=== PATIENT | female | born 1950 | race Caucasian/White ===

== ENCOUNTER → 2017-01-29 | Outpatient (REF) | payer OTHER ==
[2017-01-29 17:39] LABS: BASO % 0.6 % (0.0-1.0); EOS # 0.2 K/mm3 (0.0-0.50); EOS % 2.7 % (0.0-3.0); LARGE UNSTAINED CELL # 0.1 K/mm3 (0.0-0.4); LARGE UNSTAINED CELL % 1.4 % (0.0-4.0); LYMPH # 2.7 K/mm3 (1.5-4.5); LYMPH % 32.5 % (24.0-44.0); MEAN CORPUSCULAR HEMOGLOBIN 30.4 pg (27.0-33.0); MONO # 0.3 K/mm3 (0.0-0.8); MONO % 4.1 % (0.0-5.0); NEUTROPHILS # 4.9 K/mm3 (1.8-7.7); NEUTROPHILS % 58.6 % (36.0-66.0); PLATELET COUNT, AUTOMATED 326 k/mm3 (150-450); RED CELL DISTRIBUTION WIDTH 13.1 % (11.5-14.5); WHITE BLOOD COUNT 8.4 K/mm3 (4.0-10.0)
[2017-01-29 18:07] LABS: ALBUMIN 3.8 GM/DL (3.2-5.2); ALBUMIN/GLOBULIN RATIO 1.12 (1.00-1.93); ALKALINE PHOSPHATASE 112 U/L (45-117); ALT/SGPT 32 U/L (12-78); ANION GAP 8 MEQ/L (8-16); AST/SGOT 20 U/L (15-37); BILIRUBIN,TOTAL 0.8 MG/DL (0.2-1.0); BLOOD UREA NITROGEN 15 MG/DL (7-18); CALCIUM LEVEL 8.7 MG/DL (8.8-10.2); CARBON DIOXIDE LEVEL 29 MEQ/L (21-32); CHLORIDE LEVEL 102 MEQ/L (98-107); CREATININE FOR GFR 0.78 MG/DL (0.55-1.02); FREE T4 1.02 NG/DL (0.76-1.46); GLOMERULAR FILTRATION RATE > 60.0 (>45); GLUCOSE, FASTING 127 MG/DL (80-110); SODIUM LEVEL 139 MEQ/L (136-145); TOTAL PROTEIN 7.2 GM/DL (6.4-8.2)
[2017-01-29 18:50] LABS: ERYTHROCYTE SEDIMENTATION RATE 33 mm/hr (0-30)
== END ==
LOC: M SFHCCLAY 11:23
PROVIDERS: ATTEND Physician Assistant
DX: A69.20 Lyme disease, unspecified (principal)

== ENCOUNTER → 2017-04-14 | Outpatient (REF) | payer OTHER ==
[~2017-04-14] MED LIST: ADVI200T PO; AMBI5TAB PO; ASPI1TAB PO; ATOR40TA75 PO; CIPR500T3 PO; MULT1TAB10 PO; TYLE650T35 PO; ZOLO100T PO
[2017-04-14 12:43] LABS: MEAN CORPUSCULAR HEMOGLOBIN 30.3 pg (27.0-33.0); MEAN CORPUSCULAR HGB CONC 32.6 g/dl (32.0-36.5); MEAN CORPUSCULAR VOLUME 92.9 fl (80.0-96.0); RED CELL DISTRIBUTION WIDTH 13.3 % (11.5-14.5); WHITE BLOOD COUNT 8.8 K/mm3 (4.0-10.0)
[2017-04-17 00:06] LABS: Lyme Disease IgG Ab 18 kDa Ban Absent (.); Lyme Disease IgG Ab 23 kDa Ban Absent (.); Lyme Disease IgG Ab 28 kDa Ban Absent (.); Lyme Disease IgG Ab 30 kDa Ban Absent (.); Lyme Disease IgG Ab 39 kDa Ban Absent (.); Lyme Disease IgG Ab 41 kDa Ban Absent (.); Lyme Disease IgG Ab 45 kDa Ban Absent (.); Lyme Disease IgG Ab 58 kDa Ban Absent (.); Lyme Disease IgG Ab 66 kDa Ban Absent (.); Lyme Disease IgG Ab 93 kDa Ban Absent (.); Lyme Disease IgG West Blot Int Negative (.); Lyme Disease IgG/IgM Antibodie <0.91 ISR (0.00-0.90); Lyme Disease IgM Ab 23 kDa Ban Present (.); Lyme Disease IgM Ab 39 kDa Ban Absent (.); Lyme Disease IgM Ab 41 kDa Ban Absent (.); Lyme Disease IgM Ab Quantitati 2.22 index (0.00-0.79); Lyme Disease IgM West Blot Int Negative (.)
== END ==
LOC: M SFHCPLAZ 09:17 → M SFHCCLAY 09:22
PROVIDERS: ATTEND Internal Medicine Infectious Disease
DX: A69.20 Lyme disease, unspecified (principal)

== ENCOUNTER → 2017-05-25 | Outpatient (REF) | payer OTHER | LOC: M SFHCCAPE 15:47 | PROVIDERS: ATTEND Physician Assistant | DX: R10.31 Right lower quadrant pain (principal) ==

== ENCOUNTER → 2017-06-04 | Outpatient (CLI) | payer OTHER ==
[~2017-06-04] MED LIST changes: +GASTROGRAFIN SOLUTION 30ML (Q9963) As Ordered ONE; +ISOVUE-370 76% 100ML VIAL (Q9967) As Ordered ONE
--- NOTE | 2017-06-05 14:32 | REP ---
Clinical: Right lower quadrant pain. Findings: Lung bases demonstrate chronic granulomatous changes. Visualized heart and pericardium are normal. The right kidney includes a 3.3 cm enhancing mass lesion along the medial aspect of the kidney consistent with renal cell carcinoma until proven otherwise. No perinephric stranding or obvious significant adenopathy appreciated. The right renal vasculature appears normal and without obvious thrombosis. Liver, spleen, pancreas, gallbladder, bilateral adrenal glands and left kidney appear relatively normal. The enteric system is without obstruction or acute inflammatory process. Scattered diverticula noted without acute diverticulitis. Pelvis demonstrates partially calcified uterine fibroids. The bladder is partially collapsed and grossly normal. No pelvic fluid. Sigmoid diverticulosis noted without acute diverticulitis. Normal terminal ileum and appendix identified in the right lower quadrant. Atherosclerotic changes of the aorta and branch vessels noted without aneurysm. No ascites. No free air. No mass lesion. No adenopathy. Musculoskeletal structures demonstrate age-related changes. Impression: 1. 3.3 cm enhancing right renal mass consistent with renal cell carcinoma until proven otherwise. No associated perinephric stranding, significant adenopathy, or vascular abnormality noted. No ascites. No obvious metastatic disease. 2. Colonic diverticulosis. 3. Calcified uterine fibroids. Signed by Juan Bravo MD 06/04/2017 11:34 P
== END ==
LOC: M RAD 14:08
PROVIDERS: ATTEND Physician Assistant
DX: R10.31 Right lower quadrant pain (principal); N28.89 Other specified disorders of kidney and ureter; K57.30 Diverticulosis of large intestine without perforation or abscess without bleeding; D25.0 Submucous leiomyoma of uterus
CPT/HCPCS: 74178; Q9963; Q9967

== ENCOUNTER → 2017-06-11 | Outpatient (REF) | payer OTHER ==
[~2017-06-11] MED LIST changes: -GASTROGRAFIN SOLUTION 30ML (Q9963) As Ordered ONE; -ISOVUE-370 76% 100ML VIAL (Q9967) As Ordered ONE
== END ==
LOC: M SMT 13:02
PROVIDERS: ATTEND Nurse Practitioner Women's Health
DX: Z01.812 Encounter for preprocedural laboratory examination (principal); N28.89 Other specified disorders of kidney and ureter

== ENCOUNTER → 2017-06-22 | Outpatient (REF) | payer OTHER ==
[2017-06-22 11:35] LABS: MEAN CORPUSCULAR HEMOGLOBIN 30.2 pg (27.0-33.0); MEAN CORPUSCULAR HGB CONC 32.9 g/dl (32.0-36.5); MEAN CORPUSCULAR VOLUME 91.8 fl (80.0-96.0); RED CELL DISTRIBUTION WIDTH 13.4 % (11.5-14.5); WHITE BLOOD COUNT 9.8 K/mm3 (4.0-10.0)
[2017-06-22 11:42] LABS: INR 0.88
[2017-06-22 11:43] LABS: ANION GAP 4 MEQ/L (8-16); BLOOD UREA NITROGEN 13 MG/DL (7-18); CALCIUM LEVEL 8.9 MG/DL (8.8-10.2); CARBON DIOXIDE LEVEL 31 MEQ/L (21-32); CHLORIDE LEVEL 105 MEQ/L (98-107); CREATININE FOR GFR 0.71 MG/DL (0.55-1.02); GLOMERULAR FILTRATION RATE > 60.0 (>45); GLUCOSE, FASTING 113 MG/DL (80-110); POTASSIUM SERUM 4.6 MEQ/L (3.5-5.1); SODIUM LEVEL 140 MEQ/L (136-145)
== END ==
LOC: M LABSMT 08:57
PROVIDERS: ATTEND Nurse Practitioner Women's Health
DX: Z01.812 Encounter for preprocedural laboratory examination (principal); N28.89 Other specified disorders of kidney and ureter

== ENCOUNTER → 2017-06-22 | Outpatient (CLI) | payer OTHER ==
--- NOTE | 2017-06-22 10:31 | REP ---
PA and lateral chest: There are no comparisons. There is a 3.7 mm right lung nodule. In the absence of comparison studies to document stability, CT might be considered for followup, particularly in view of the patient's clinical history. The lung lund otherwise clear. Cardiac size is normal. The everett and mediastinum are unremarkable. There is thoracic scoliosis convex right lumbar scoliosis convex left. There is multilevel degenerative disc disease throughout the spine. Impression: 2.7 cm right lung nodule. Consider follow-up CT. Otherwise, negative study of the chest. No acute cardiopulmonary findings
== END ==
LOC: M CLY 09:08 → M SFHCCLAY 09:12 → M CLY 09:13 → M SFHCCLAY 09:13
PROVIDERS: ATTEND Nurse Practitioner Women's Health
DX: Z01.812 Encounter for preprocedural laboratory examination (principal); N28.89 Other specified disorders of kidney and ureter; R91.1 Solitary pulmonary nodule

== ENCOUNTER → 2017-06-23 | Outpatient (CLI) | payer OTHER ==
[~2017-06-23] MED LIST changes: +ISOVUE-370 76% 100ML VIAL (Q9967) As Ordered ONE
--- NOTE | 2017-06-23 14:50 | REP ---
CT of the chest with IV contrast: Comparison is the PA and lateral chest dated 06/22/2017. There is a calcified nodule in the right middle lobe corresponding to the nodule on the comparison plain film study. This is compatible with calcified granuloma. By CT. This nodule measures 6 mm maximally. There is a 7 mm calcified granuloma in the right lower lobe. Just above this there is a 3 mm calcified granuloma in the right lower lobe. There are no other lung nodules or masses. There are no acute infiltrates or effusions. There is no mediastinal or hilar adenopathy. No axillary adenopathy. The thoracic aorta is unremarkable. Cardiac size is normal. There is no pericardial effusion. The visualized upper abdominal contents are unremarkable except for splenic calcified granulomas. There is no adrenal mass. There are calcified granulomas as described. The small nodule identified on the comparison study corresponds to one of these calcified granulomas. Otherwise, negative CT study of the chest. Signed by Don Goff MD 06/23/2017 02:41 P
== END ==
LOC: M RAD 13:47
PROVIDERS: ATTEND Nurse Practitioner Women's Health
DX: R91.1 Solitary pulmonary nodule (principal); J98.4 Other disorders of lung
CPT/HCPCS: 71260; Q9967

== ENCOUNTER 2017-07-07 10:00 | Inpatient (IN) | payer MEDICARE, OTHER ==
[~2017-07-07] VITALS: Ht 170.2 cm; Wt 112.5 kg
[~2017-07-07 10:00] MED LIST changes: -CIPR500T3 PO; -ISOVUE-370 76% 100ML VIAL (Q9967) As Ordered ONE; -TYLE650T35 PO
--- NOTE | 2017-07-27 11:46 | HPE ---
DATE OF ADMISSION: 07/28/2017 HISTORY OF PRESENT ILLNESS: Jo-Ann is a 66-year-old female patient here for evaluation of the right renal mass seen on CAT scan of abdomen and pelvis. CAT scan shows an enhancing 3.3 cm renal mass consistent with renal cell carcinoma. CAT scan was done for right lower quadrant pain. She was treated for urinary tract infection at that time with Cipro. She had finished her antibiotics and pain has subsided. She currently has no father some lower urinary tract symptoms, pain or hematuria. CURRENT MEDICATIONS: - multivitamin - Biotin - vitamin D - vitamin B12 - Zocor - sertraline - atorvastatin - calcium - low-dose baby aspirin. PAST MEDICAL HISTORY: Hyperlipidemia, depression, anxiety, Lyme disease. PAST SURGICAL HISTORY: section times two, bladder sling 2015. SOCIAL HISTORY: She is a current smoker of six to ten cigarettes per day. ALLERGIES: No known drug allergies. REVIEW OF SYSTEMS: We have reviewed the 14 review of systems and there is no other symptomatology other than the history of present illness. Vital signs were stable. Weight is 196 pounds, height 5 feet 7 inches. PHYSICAL EXAMINATION GENERAL APPEARANCE: Alert, oriented, no apparent distress. HEART: Strong, regular. No murmur. ABDOMEN : No CVA tenderness. Soft, nontender, no mass. LUNGS: Clear to auscultate bilaterally. Respirations easy. EXTREMITIES: No edema, clubbing or cyanosis. ASSESSMENT: Right renal mass. Dr. Valverde has reviewed with the patient that she will need of robotic-assisted right radical nephrectomy. Procedure was included to review of risk of infection, bleeding, damage to organs. Consent was signed, and she has had a full medical clearance and will proceed with surgery.
[2017-07-28] MEDS ORDERED: LR 1,000 ML IV SCH ×2 (10:00→17:15)
[2017-07-28] MEDS: oxyCODONE 5MG TAB PO PRN (17:10)
[2017-07-28] MEDS ORDERED: fentaNYL 100 MCG/2 ML INJECTION (J3010) IV PRN (17:15)
[2017-07-28] MEDS ORDERED: MEPERIDINE INJ 25 MG/ML VIAL (J2175) IV PRN (17:15)
[2017-07-28] MEDS ORDERED: METOCLOPRAMIDE INJ 10MG/2ML VIAL (J2765) IV PRN (17:15)
[2017-07-28] MEDS ORDERED: ONDANSETRON 4MG/2ML VIAL (J2405) IV PRN ×2 (17:15)
[2017-07-28 17:43] LABS: MEAN CORPUSCULAR HEMOGLOBIN 29.7 pg (27.0-33.0); MEAN CORPUSCULAR HGB CONC 32.3 g/dl (32.0-36.5); MEAN CORPUSCULAR VOLUME 91.7 fl (80.0-96.0); PLATELET COUNT, AUTOMATED 284 10^3/uL (150-450); RED CELL DISTRIBUTION WIDTH 13.7 % (11.5-14.5)
[2017-07-28] MEDS ORDERED: PERCOCET 5MG/325MG TAB PO PRN ×2 (18:15→20:30)
[2017-07-28 18:16] LABS: CALCIUM LEVEL 8.5 MG/DL (8.8-10.2); CREATININE FOR GFR 1.29 MG/DL (0.55-1.02); GLOMERULAR FILTRATION RATE 44.2 (>45)
[2017-07-28 18:25] VITALS: BP 140/63
[2017-07-28 18:55] VITALS: BP 130/60
[2017-07-28 19:25] VITALS: BP 137/65
[2017-07-28] MEDS: PANTOPRAZOLE 40MG INJ (PROTONIX) (C9113) IV SCH (20:16)
[2017-07-28] MEDS: CIPROFLOXACIN 500 MG TAB PO SCH (20:16)
[2017-07-28] MEDS: KCL 20MEQ IN D5/0.45NS 1000ML 1,000 ML IV SCH (20:17)
[2017-07-28 20:25] VITALS: BP 134/64
[2017-07-28 21:25] VITALS: BP 131/61
[2017-07-28] MEDS: ACETAMINOPHEN 650MG ER TAB (TYLENOL ARTHRITIS) PO SCH (22:00)
[2017-07-28] MEDS: MORPHINE 4 MG/ML 1ML SYRINGE IV PRN (22:12)
[2017-07-28 23:00] VITALS: BP 131/64
[2017-07-29] VITALS: BP 136/63
[2017-07-29] MEDS: KCL 20MEQ IN D5/0.45NS 1000ML 1,000 ML IV SCH ×2 (03:15→14:15)
[2017-07-29] MEDS: MORPHINE 4 MG/ML 1ML SYRINGE IV PRN ×2 (03:45→10:18)
[2017-07-29 04:00] VITALS: BP 134/62
[2017-07-29 06:00] VITALS: BP 121/58
[2017-07-29] MEDS: CIPROFLOXACIN 500 MG TAB PO SCH ×2 (06:13→18:21)
[2017-07-29] MEDS: ACETAMINOPHEN 650MG ER TAB (TYLENOL ARTHRITIS) PO SCH ×3 (06:13→21:42)
[2017-07-29 06:27] LABS: MEAN CORPUSCULAR HEMOGLOBIN 29.5 pg (27.0-33.0); MEAN CORPUSCULAR HGB CONC 32.1 g/dl (32.0-36.5); PLATELET COUNT, AUTOMATED 272 10^3/uL (150-450); RED CELL DISTRIBUTION WIDTH 13.9 % (11.5-14.5); WHITE BLOOD COUNT 13.1 10^3/uL (4.0-10.0)
[2017-07-29 06:53] LABS: CALCIUM LEVEL 8.5 MG/DL (8.8-10.2); CREATININE FOR GFR 1.19 MG/DL (0.55-1.02); GLOMERULAR FILTRATION RATE 48.5 (>45); POTASSIUM SERUM 4.4 MEQ/L (3.5-5.1)
[2017-07-29] MEDS: oxyCODONE 5MG TAB PO PRN ×3 (08:39→18:22)
[2017-07-29 10:00] VITALS: BP 143/66
[2017-07-29 14:00] VITALS: BP 131/63
[2017-07-29 18:00] VITALS: BP 148/67
[2017-07-29] MEDS: PANTOPRAZOLE 40MG INJ (PROTONIX) (C9113) IV SCH (18:21)
[2017-07-29] MEDS ORDERED: zolPIDEM TARTRATE 5 MG TAB PO PRN (19:00)
[2017-07-30] MEDS: KCL 20MEQ IN D5/0.45NS 1000ML 1,000 ML IV SCH (00:49)
[2017-07-30 02:00] VITALS: BP 139/61
[2017-07-30] MEDS: oxyCODONE 5MG TAB PO PRN ×4 (02:04→18:26)
[2017-07-30] MEDS: CIPROFLOXACIN 500 MG TAB PO SCH ×2 (05:22→18:25)
[2017-07-30] MEDS: ACETAMINOPHEN 650MG ER TAB (TYLENOL ARTHRITIS) PO SCH ×3 (05:22→21:30)
[2017-07-30 06:00] VITALS: BP 144/64
[2017-07-30] MEDS ORDERED: PNEUMOCOCCAL VACCINE 0.5ML SYRINGE(90732) PNEUMOVAX 23 IM ONE (09:00)
[2017-07-30 10:00] VITALS: BP 136/70
[2017-07-30 14:00] VITALS: BP 138/80
--- NOTE | 2017-07-30 15:40 | RO ---
DATE OF PROCEDURE: 07/29/2017 PREPROCEDURE DIAGNOSIS: Right renal neoplasm. POSTPROCEDURE DIAGNOSIS: Right renal neoplasm. SURGERY PERFORMED: Robotic-assisted right radical nephrectomy. SURGEON: Yvon Valverde MD SENIOR WEB APPLICATIONS DEVELOPER: Marcela Martinez NP ANESTHESIA: General. ESTIMATED BLOOD LOSS (EBL): 25 mL. COMPLICATIONS: None. HISTORY OF PRESENT ILLNESS: 67-year-old male patient who has an incidentally detected right renal neoplasm, solid mass enhancing on CT scan. For this reason , she has consented for a right robotic-assisted radical nephrectomy. PROCEDURE DESCRIPTION: In a patient under general anesthesia with an orogastric tube draining the gastric contents and a Dorsey catheter #[id number] with a balloon inflated to 10 mL to drain the bladder, we positioned the patient in the decubitolateral position with the left side down and the right side up. We secured the patient to the table with a swan bag and straps. The table was flexed at the level of the waist. At that moment in time, we prepped the area of concern, which included the entire genitalia, abdomen and right flank. After this we started by doing an incision supraumbilically for about 4 cm above the umbilicus in the midclavicular line, transverse incision about 2 cm in length. Through this incision, we opened the peritoneal cavity. We placed a balloon trocar through this incision and inflated the balloon to 40 mL and then insufflated the abdomen with a maximum pressure of 20 at high flow. We then proceeded to actually place a 10 mm robotic hand-held assisted camera to inspect the abdomen. There were some adhesions in the right lower quadrant of the abdomen. For this reason, we placed a mid clavicular line, subcostal 8 mm metallic trocar under direct vision and then with Monopolar scissors we dissected the adhesions to place the lower four trocars. We placed an 8 mm metallic trocar in the two axillary lines 4 cm away from the anterior iliac crest for the third arm and between these two and the optic port in the mid clavicular line in the right lower quadrant another 8 mm metallic trocar. Between this one and the optic port in the midline, infraumbilically, we placed a 15 mm trust manager assistant port through which the Endo Catch could actually be accessed. We then proceeded to dock the robot and on the left arm we used Monopolar scissors and on the third arm ProGrasp and on the right arm bipolar PK. We also placed a 5 mm VersaStep trocar in the epigastrium 3 cm below the appendix xiphoid through the tract to pass an Allis clamp to retract the liver. We then proceeded to actually dissect the Line of Toldt of the ascending colon and retract the ascending colon toward the midline. We dissected the tissues around the vena cava up to the renal vein. We identified the renal vein and the renal artery. There were actually two arteries, one inferior and one superior. At that moment in time, we Hem-o-landry the inferior artery with two Hem-o-Loks and one proximal Hem-o-landry toward the kidney. We cut in the middle. We then dissected the renal vein and found another artery superiorly. At that moment in time, we dissected the upper pole and dissected the adrenal away from the upper pole of the right kidney. We then proceeded to actually dissected the gonadal vein and the ureter. At that moment in time, we Hem-o-landry the ureter times two and Hem-o-landry the gonadal vein times two and cut in the middle. We then dissected the lower pole and retracted the lower pole with the third arm. This placed into traction the hilum and then with an Endo SCOUT stapler, we secured the renal vein and the superior renal artery in one. We then proceeded to actually place another Endo SCOUT stapler for the upper pole attachments that were adrenal and then dissected with Monopolar scissors the attachments of the upper pole and the lateral pole of the kidney. We then placed the kidney into a 15 mm Endo Catch bag and then secured hemostasis with bipolar PK and monopolar scissors. We then extracted the instruments out one by one, verifying that there were no bleeding vessels, undocked the robot and took all the instruments out and the optic port out before that. We then undocked the robot, took all the trocars out and started to extend the incision in the midline around the umbilicus for about 7 cm in length. At that moment in time we extracted the specimen from the Endo Catch bag and sent it for permanent pathology analysis. We closed the incision in the midline with a Prolene #1 in separate stitches and then we closed the optic port incision also with Prolene #1 in separate stitches and a UR 6 needle and #0 Vicryl in separate stitches second layer. We then closed the skin incisions with #4-0 Monocryl subcuticular stitches. We placed Mastisol, Steri-Strips, Telfa in each incision site. Patient will pass to recovery with a Dorsey catheter and then to the floor. Once she is fully recovered and tolerating a regular diet and voiding very well, pain under control, she will be discharged home. There were no complications of surgery. Kidney and ureter were sent for permanent pathology analysis, right kidney and ureter. MELBA
[2017-07-30] MEDS: PANTOPRAZOLE 40MG INJ (PROTONIX) (C9113) IV SCH (18:25)
[2017-07-30 22:00] VITALS: BP 141/70
[2017-07-31] MEDS: CIPROFLOXACIN 500 MG TAB PO SCH (05:39)
[2017-07-31] MEDS: ACETAMINOPHEN 650MG ER TAB (TYLENOL ARTHRITIS) PO SCH ×2 (05:39→13:12)
[2017-07-31 06:00] VITALS: BP 125/57
[2017-07-31 06:07] LABS: MEAN CORPUSCULAR HEMOGLOBIN 29.7 pg (27.0-33.0); MEAN CORPUSCULAR HGB CONC 32.4 g/dl (32.0-36.5); MEAN CORPUSCULAR VOLUME 91.7 fl (80.0-96.0); PLATELET COUNT, AUTOMATED 228 10^3/uL (150-450); RED CELL DISTRIBUTION WIDTH 13.8 % (11.5-14.5); WHITE BLOOD COUNT 9.3 10^3/uL (4.0-10.0)
[2017-07-31 06:26] LABS: CALCIUM LEVEL 8.9 MG/DL (8.8-10.2); CREATININE FOR GFR 1.28 MG/DL (0.55-1.02); GLOMERULAR FILTRATION RATE 44.6 (>45); POTASSIUM SERUM 4.2 MEQ/L (3.5-5.1)
[2017-07-31] MEDS ORDERED: TYLE650T35 PO (12:56)
[2017-07-31] MEDS ORDERED: CIPR500T3 PO (12:56)
--- NOTE | 2017-08-03 17:01 | DSES ---
DATE OF ADMISSION: 07/28/2017 DATE OF DISCHARGE: 07/31/2017 ADMISSION DIAGNOSIS: Right renal neoplasm. DISCHARGE DIAGNOSIS: Right renal neoplasm. SURGERY PERFORMED: Robotic-assisted right radical nephrectomy. ADMITTING SURGEON: Yvon Valverde MD DISCHARGING SURGEON: Yvon Valverde MD COMPLICATIONS: None. HISTORY OF PRESENT ILLNESS: 67-year-old female patient who has an incidentally detected right renal neoplasm, solid mass enhancing on CT scan. For this reason, she has consented for a right robotic-assisted radical nephrectomy. This was carried out on 07/29/2017. After this procedure, she was admitted to the hospital. HOSPITALIZATION COURSE: The patient did very well. By postoperative day #1, she was tolerating clear liquids, we discontinued the Dosrey catheter and she voided. By postoperative day #2, she was tolerating a regular diet, passing gas, pain was controlled with by mouth pain medication. By 07/31/2017, she was actually tolerating a regular diet, drinking fluids, voiding spontaneously very well, pain was controlled with Tylenol only, and no fever, no chills, hemodynamically stable. She requested to go home and we agreed upon this. For this reason, she will go home with ciprofloxacin 500 mg by mouth one tablet by mouth twice a day for 10 days. She will have Tylenol 650 mg one tablet by mouth extended release every 8 hours as needed for pain. She will followup at [facility] in about 2 weeks. She may shower in 3 days. No heavy weightlifting above 20 pounds. No driving while on narcotics. Pathology has not come out yet. For this reason, we will followup pathology and when she follows up with us, we will discuss the pathology results. There were no complications during surgery or hospitalization.
== END 2017-07-31 13:43 | disposition home or self-care (01) | DRG 658 ==
LOC: M OR 07-28 09:50 → M MSPAV 07-28 18:16
PROVIDERS: ADMIT Urology; ATTEND Urology
PROC: 0TT04ZZ Resection of Right Kidney, Percutaneous Endoscopic Approach (ICD-10-PCS; principal; 2017-07-29)
PROC: 0TB64ZZ Excision of Right Ureter, Percutaneous Endoscopic Approach (ICD-10-PCS; 2017-07-29)
PROC: 8E0W4CZ Robotic Assisted Procedure of Trunk Region, Percutaneous Endoscopic Approach (ICD-10-PCS; 2017-07-29)
DX: C64.1 Malignant neoplasm of right kidney, except renal pelvis (principal); E78.5 Hyperlipidemia, unspecified; F32.9 Major depressive disorder, single episode, unspecified; F41.9 Anxiety disorder, unspecified; F17.210 Nicotine dependence, cigarettes, uncomplicated

== ENCOUNTER → 2017-09-04 | Outpatient (REF) | payer MEDICARE, OTHER ==
[~2017-09-04] MED LIST changes: +CIPR500T3 PO; +TYLE650T35 PO
[2017-09-04 18:21] LABS: MEAN CORPUSCULAR HEMOGLOBIN 30.1 pg (27.0-33.0); MEAN CORPUSCULAR HGB CONC 32.6 g/dl (32.0-36.5); MEAN CORPUSCULAR VOLUME 92.3 fl (80.0-96.0); PLATELET COUNT, AUTOMATED 270 10^3/uL (150-450); RED CELL DISTRIBUTION WIDTH 14.2 % (11.5-14.5)
[2017-09-04 18:27] LABS: CREATININE FOR GFR 1.16 MG/DL (0.55-1.02); GLOMERULAR FILTRATION RATE 49.9 (>45); POTASSIUM SERUM 4.8 MEQ/L (3.5-5.1)
== END ==
LOC: M LABDRAWC 17:26
PROVIDERS: ATTEND Nurse Practitioner Women's Health
DX: C64.1 Malignant neoplasm of right kidney, except renal pelvis (principal)

== ENCOUNTER → 2017-12-07 | Outpatient (REF) | payer MEDICARE, OTHER ==
[2017-12-07 18:33] LABS: HEMATOCRIT 42.1 % (36.0-47.0); HEMOGLOBIN 13.5 g/dl (12.0-16.0); MEAN CORPUSCULAR HEMOGLOBIN 29.2 pg (27.0-33.0); MEAN CORPUSCULAR HGB CONC 32.1 g/dl (32.0-36.5); MEAN CORPUSCULAR VOLUME 91.1 fl (80.0-96.0); PLATELET COUNT, AUTOMATED 240 10^3/uL (150-450); RED BLOOD COUNT 4.62 10^6/uL (4.00-5.40); RED CELL DISTRIBUTION WIDTH 13.5 % (11.5-14.5); WHITE BLOOD COUNT 8.1 10^3/uL (4.0-10.0)
[2017-12-07 18:55] LABS: ANION GAP 8 MEQ/L (8-16); BLOOD UREA NITROGEN 20 MG/DL (7-18); CALCIUM LEVEL 8.9 MG/DL (8.8-10.2); CARBON DIOXIDE LEVEL 27 MEQ/L (21-32); CHLORIDE LEVEL 106 MEQ/L (98-107); CHOLESTEROL LEVEL 151 MG/DL (<200); CHOLESTEROL RISK RATIO 2.796 (<5); CREATININE FOR GFR 1.13 MG/DL (0.55-1.30); GLOMERULAR FILTRATION RATE 51.4 (>45); GLUCOSE, FASTING 101 MG/DL (70-100); HDL CHOLESTEROL 54 MG/DL (>40); LDL CHOLESTEROL 73.2 MG/DL (<100); NON-HDL-C 97 MG/DL; POTASSIUM SERUM 4.5 MEQ/L (3.5-5.1); SODIUM LEVEL 141 MEQ/L (136-145); TRIGLYCERIDES LEVEL 119 MG/DL (<150)
== END ==
LOC: M SFHCCLAY 09:33
DX: Z85.528 Personal history of other malignant neoplasm of kidney (principal); E78.5 Hyperlipidemia, unspecified
CPT/HCPCS: 80061

== ENCOUNTER → 2018-04-15 | Outpatient (REF) | payer MEDICARE, OTHER ==
[2018-04-16 11:28] LABS: HEMATOCRIT 41.1 % (36.0-47.0); HEMOGLOBIN 13.5 g/dl (12.0-15.5); MEAN CORPUSCULAR HEMOGLOBIN 30.4 pg (27.0-33.0); MEAN CORPUSCULAR HGB CONC 32.8 g/dl (32.0-36.5); MEAN CORPUSCULAR VOLUME 92.6 fl (80.0-96.0); PLATELET COUNT, AUTOMATED 229 10^3/uL (150-450); RED BLOOD COUNT 4.44 10^6/uL (4.00-5.40); RED CELL DISTRIBUTION WIDTH 13.6 % (11.5-14.5)
[2018-04-16 11:45] LABS: ANION GAP 8 MEQ/L (8-16); BLOOD UREA NITROGEN 24 MG/DL (7-18); CALCIUM LEVEL 8.6 MG/DL (8.8-10.2); CARBON DIOXIDE LEVEL 27 MEQ/L (21-32); CHLORIDE LEVEL 106 MEQ/L (98-107); GLOMERULAR FILTRATION RATE 43.8 (>45); GLUCOSE, FASTING 111 MG/DL (70-100); POTASSIUM SERUM 4.3 MEQ/L (3.5-5.1); SODIUM LEVEL 141 MEQ/L (136-145)
== END ==
LOC: M SFHCCLAY 15:15
DX: Z85.528 Personal history of other malignant neoplasm of kidney (principal)
CPT/HCPCS: 80048

== ENCOUNTER → 2018-06-28 | Outpatient (CLI) | payer MEDICARE, OTHER | LOC: M CLY 15:56 | DX: M50.321 Other cervical disc degeneration at C4-C5 level (principal); M50.322 Other cervical disc degeneration at C5-C6 level; M50.323 Other cervical disc degeneration at C6-C7 level; M25.78 Osteophyte, vertebrae; M54.12 Radiculopathy, cervical region | CPT/HCPCS: 72050; G0463 ==

== ENCOUNTER → 2018-08-19 | Outpatient (REF) | payer MEDICARE, OTHER ==
[2018-08-20 11:49] LABS: HEMATOCRIT 40.7 % (36.0-47.0); MEAN CORPUSCULAR HEMOGLOBIN 29.3 pg (27.0-33.0); MEAN CORPUSCULAR HGB CONC 31.9 g/dl (32.0-36.5); MEAN CORPUSCULAR VOLUME 91.7 fl (80.0-96.0); PLATELET COUNT, AUTOMATED 236 10^3/uL (150-450); RED BLOOD COUNT 4.44 10^6/uL (4.00-5.40); RED CELL DISTRIBUTION WIDTH 13.2 % (11.5-14.5); WHITE BLOOD COUNT 8.7 10^3/uL (4.0-10.0)
[2018-08-20 11:50] LABS: APPEARANCE, URINE HAZY (CLEAR); BACTERIA, URINE AUTO NEGATIVE (NEGATIVE); BILIRUBIN, URINE AUTO NEGATIVE (NEGATIVE); BLOOD, URINE BLOOD NEGATIVE (NEGATIVE); COLOR, URINE YELLOW (YELLOW); GLUCOSE, URINE (UA) AUTO NEGATIVE (NEGATIVE); KETONE, URINE AUTO NEGATIVE (NEGATIVE); LEUKOCYTE ESTERASE, URINE AUTO NEGATIVE (NEGATIVE); MUCUS, URINE SMALL (NEGATIVE); NITRITE, URINE AUTO NEGATIVE (NEGATIVE); PROTEIN, URINE AUTO NEGATIVE (NEGATIVE); RBC, URINE AUTO 2 /HPF (0-3); SPECIFIC GRAVITY URINE AUTO 1.021 (1.002-1.035); SQUAMOUS EPITHELIAL CELL UR AU 1 /HPF (0-6); UROBILINOGEN, URINE AUTO 0.2 mg/dL (0.0-2.0); WBC, URINE AUTO 2 /HPF (0-3)
[2018-08-20 11:58] LABS: ANION GAP 9 MEQ/L (8-16); BLOOD UREA NITROGEN 28 MG/DL (7-18); CALCIUM LEVEL 8.7 MG/DL (8.8-10.2); CARBON DIOXIDE LEVEL 27 MEQ/L (21-32); CHLORIDE LEVEL 105 MEQ/L (98-107); CREATININE FOR GFR 1.22 MG/DL (0.55-1.30); GLOMERULAR FILTRATION RATE 46.9 (>45); GLUCOSE, FASTING 79 MG/DL (70-100); POTASSIUM SERUM 4.4 MEQ/L (3.5-5.1); SODIUM LEVEL 141 MEQ/L (136-145)
== END ==
LOC: M SFHCCLAY 15:20
DX: Z85.528 Personal history of other malignant neoplasm of kidney (principal)
CPT/HCPCS: 80048

== ENCOUNTER → 2018-09-13 | Outpatient (CLI) | payer MEDICARE, OTHER ==
[~2018-09-13] MED LIST changes: -ADVI200T PO; -AMBI5TAB PO; -ASPI1TAB PO; -ATOR40TA75 PO; -CIPR500T3 PO; +ISOVUE-370 76% 100ML VIAL (Q9967) As Ordered; -MULT1TAB10 PO; -TYLE650T35 PO; -ZOLO100T PO
== END ==
LOC: M RAD 15:45
DX: K57.90 Diverticulosis of intestine, part unspecified, without perforation or abscess without bleeding (principal); D25.9 Leiomyoma of uterus, unspecified; Z85.528 Personal history of other malignant neoplasm of kidney; Z90.5 Acquired absence of kidney
CPT/HCPCS: Q9967

== ENCOUNTER → 2019-03-08 | Outpatient (REF) | payer MEDICARE, OTHER ==
[~2019-03-08] MED LIST changes: +ADVI200T PO; +AMBI5TAB PO; +ASPI81TA26 PO; +ATOR40TA75 PO; +CIPR500T3 PO; -ISOVUE-370 76% 100ML VIAL (Q9967) As Ordered; +MULT1TAB10 PO; +TYLE650T35 PO; +ZOLO100T PO
[2019-03-08 12:55] LABS: HEMATOCRIT 44.8 % (36.0-47.0); HEMOGLOBIN 14.4 g/dl (12.0-15.5); MEAN CORPUSCULAR HEMOGLOBIN 29.2 pg (27.0-33.0); MEAN CORPUSCULAR HGB CONC 32.1 g/dl (32.0-36.5); MEAN CORPUSCULAR VOLUME 90.9 fl (80.0-96.0); PLATELET COUNT, AUTOMATED 297 10^3/uL (150-450); RED BLOOD COUNT 4.93 10^6/uL (4.00-5.40)
[2019-03-08 13:15] LABS: APPEARANCE, URINE CLEAR (CLEAR); BACTERIA, URINE AUTO 2+ (NEGATIVE); BILIRUBIN, URINE AUTO NEGATIVE (NEGATIVE); BLOOD, URINE BLOOD 1+ (NEGATIVE); COLOR, URINE YELLOW (YELLOW); GLUCOSE, URINE (UA) AUTO NEGATIVE (NEGATIVE); KETONE, URINE AUTO NEGATIVE (NEGATIVE); LEUKOCYTE ESTERASE, URINE AUTO NEGATIVE (NEGATIVE); NITRITE, URINE AUTO NEGATIVE (NEGATIVE); PROTEIN, URINE AUTO NEGATIVE (NEGATIVE); RBC, URINE AUTO 2 /HPF (0-3); SPECIFIC GRAVITY URINE AUTO 1.009 (1.002-1.035); SQUAMOUS EPITHELIAL CELL UR AU 2 /HPF (0-6); UROBILINOGEN, URINE AUTO 0.2 mg/dL (0.0-2.0); WBC, URINE AUTO 4 /HPF (0-3)
[2019-03-08 13:21] LABS: CALCIUM LEVEL 9.2 MG/DL (8.8-10.2); CHOLESTEROL RISK RATIO 4.125 (<5); CREATININE FOR GFR 1.12 MG/DL (0.55-1.30); GLOMERULAR FILTRATION RATE 51.8 (>45); POTASSIUM SERUM 4.5 MEQ/L (3.5-5.1)
== END ==
LOC: M SFHCCLAY 09:15
PROVIDERS: ATTEND Nurse Practitioner Women's Health
DX: Z85.528 Personal history of other malignant neoplasm of kidney (principal); E78.5 Hyperlipidemia, unspecified

== ENCOUNTER → 2019-07-07 | Outpatient (REF) | payer MEDICARE, OTHER | LOC: M SFHCCLAY 16:01 | PROVIDERS: ATTEND Family Medicine | DX: R39.15 Urgency of urination (principal); Z23 Encounter for immunization | CPT/HCPCS: 81002; 87086; 90682; G0008; G0463 ==

== ENCOUNTER → 2019-10-06 | Outpatient (REF) | payer MEDICARE, OTHER ==
[2019-10-06 11:45] LABS: APPEARANCE, URINE HAZY (CLEAR); BACTERIA, URINE AUTO 3+ (NEGATIVE); BILIRUBIN, URINE AUTO NEGATIVE (NEGATIVE); BLOOD, URINE BLOOD 1+ (NEGATIVE); COLOR, URINE YELLOW (YELLOW); GLUCOSE, URINE (UA) AUTO NEGATIVE (NEGATIVE); KETONE, URINE AUTO NEGATIVE (NEGATIVE); LEUKOCYTE ESTERASE, URINE AUTO NEGATIVE (NEGATIVE); MUCUS, URINE SMALL (NEGATIVE); NITRITE, URINE AUTO NEGATIVE (NEGATIVE); PROTEIN, URINE AUTO NEGATIVE (NEGATIVE); RBC, URINE AUTO 7 /HPF (0-3); SPECIFIC GRAVITY URINE AUTO 1.013 (1.002-1.035); SQUAMOUS EPITHELIAL CELL UR AU 2 /HPF (0-6); UROBILINOGEN, URINE AUTO 0.2 mg/dL (0.0-2.0); WBC, URINE AUTO 2 /HPF (0-3)
[2019-10-06 11:47] LABS: HEMATOCRIT 45.2 % (36.0-47.0); HEMOGLOBIN 14.6 g/dl (12.0-15.5); MEAN CORPUSCULAR HEMOGLOBIN 29.7 pg (27.0-33.0); MEAN CORPUSCULAR HGB CONC 32.3 g/dl (32.0-36.5); MEAN CORPUSCULAR VOLUME 92.1 fl (80.0-96.0); PLATELET COUNT, AUTOMATED 314 10^3/uL (150-450); RED BLOOD COUNT 4.91 10^6/uL (4.00-5.40); WHITE BLOOD COUNT 10.9 10^3/uL (4.0-10.0)
[2019-10-06 11:58] LABS: CALCIUM LEVEL 9.2 MG/DL (8.8-10.2); CREATININE FOR GFR 1.2 MG/DL (0.55-1.30); GLOMERULAR FILTRATION RATE 47.7 (>45); POTASSIUM SERUM 4.4 MEQ/L (3.5-5.1)
== END ==
LOC: M SFHCCLAY 08:47
PROVIDERS: ATTEND Nurse Practitioner Women's Health
DX: Z85.528 Personal history of other malignant neoplasm of kidney (principal); Z79.899 Other long term (current) drug therapy

== ENCOUNTER → 2019-10-11 | Outpatient (REF) | payer MEDICARE, OTHER ==
[2019-10-11 13:40] LABS: APPEARANCE, URINE HAZY (CLEAR); BACTERIA, URINE AUTO 2+ (NEGATIVE); BILIRUBIN, URINE AUTO NEGATIVE (NEGATIVE); BLOOD, URINE BLOOD 1+ (NEGATIVE); COLOR, URINE YELLOW (YELLOW); GLUCOSE, URINE (UA) AUTO NEGATIVE (NEGATIVE); KETONE, URINE AUTO NEGATIVE (NEGATIVE); LEUKOCYTE ESTERASE, URINE AUTO NEGATIVE (NEGATIVE); MUCUS, URINE SMALL (NEGATIVE); NITRITE, URINE AUTO NEGATIVE (NEGATIVE); PROTEIN, URINE AUTO NEGATIVE (NEGATIVE); RBC, URINE AUTO 5 /HPF (0-3); SPECIFIC GRAVITY URINE AUTO 1.017 (1.002-1.035); SQUAMOUS EPITHELIAL CELL UR AU 3 /HPF (0-6); UROBILINOGEN, URINE AUTO 0.2 mg/dL (0.0-2.0); WBC, URINE AUTO 3 /HPF (0-3)
== END ==
LOC: M SMT 12:52
PROVIDERS: ATTEND Nurse Practitioner Women's Health
DX: R31.29 Other microscopic hematuria (principal)
CPT/HCPCS: 81001; 87086; 88108; G0463

== ENCOUNTER → 2019-10-18 | Outpatient (CLI) | payer MEDICARE, OTHER ==
[~2019-10-18] MED LIST changes: +ISOVUE-370 76% 100ML VIAL (Q9967) As Ordered ONE
--- NOTE | 2019-10-19 07:29 | REP ---
CT ABDOMEN AND PELVIS WITH AND WITHOUT IV CONTRAST: (CT urogram). CT abdomen and pelvis performed prior to and following the intravenous administration of 100 mL of Isovue 370. Sagittal, coronal and 3D reconstruction images are performed. Comparison made with a prior study of 09/13/2018. In the visualized lung bases, there are calcified granulomas visualized bilaterally. Multiple calcified granulomas are seen in the spleen. No mass is seen in the liver, spleen, adrenals, pancreas or left kidney. The patient has had a prior right nephrectomy. There is no mass in the right renal fossa. Atherosclerotic calcifications are seen of the abdominal aorta without aneurysm. I see no adenopathy, free air or free fluid. There is no bowel wall thickening. There is sigmoid diverticulosis without acute diverticulitis. No pelvis mass is seen. There is a calcified fibroid in the uterus. Urinary bladder is mildly distended and appears unremarkable with no definite filling defect or mass. There is no bladder calculus. There are degenerative changes of the spine. IMPRESSION: Evidence of prior granulomatous disease. Patient is status post right nephrectomy. No recurrent mass or adenopathy. Calcified uterine fibroid. Electronically Signed by Don Lopez MD 10/19/2019 05:33 P
== END ==
LOC: M RAD 15:02
PROVIDERS: ATTEND Nurse Practitioner Women's Health
DX: R31.29 Other microscopic hematuria (principal); Z85.528 Personal history of other malignant neoplasm of kidney; D25.9 Leiomyoma of uterus, unspecified; Z90.5 Acquired absence of kidney
CPT/HCPCS: 74178; Q9967

== ENCOUNTER → 2020-04-25 | Outpatient (REF) | payer MEDICARE, OTHER ==
[~2020-04-25] MED LIST changes: +ACET650T61 PO; -ISOVUE-370 76% 100ML VIAL (Q9967) As Ordered ONE; -TYLE650T35 PO
[2020-04-25 12:19] LABS: HEMATOCRIT 46.7 % (36.0-47.0); HEMOGLOBIN 14.8 g/dl (12.0-15.5); MEAN CORPUSCULAR HEMOGLOBIN 29.1 pg (27.0-33.0); MEAN CORPUSCULAR HGB CONC 31.7 g/dl (32.0-36.5); MEAN CORPUSCULAR VOLUME 91.9 fl (80.0-96.0); PLATELET COUNT, AUTOMATED 285 10^3/uL (150-450); RED BLOOD COUNT 5.08 10^6/uL (4.00-5.40); WHITE BLOOD COUNT 7.8 10^3/uL (4.0-10.0)
[2020-04-25 12:21] LABS: CALCIUM LEVEL 9.3 MG/DL (8.8-10.2); CREATININE FOR GFR 1.24 MG/DL (0.55-1.30); GLOMERULAR FILTRATION RATE 45.9 (>45); POTASSIUM SERUM 4.5 MEQ/L (3.5-5.1)
[2020-04-25 12:40] LABS: APPEARANCE, URINE HAZY (CLEAR); BACTERIA, URINE AUTO NEGATIVE (NEGATIVE); BILIRUBIN, URINE AUTO NEGATIVE (NEGATIVE); BLOOD, URINE BLOOD 1+ (NEGATIVE); COLOR, URINE YELLOW (YELLOW); GLUCOSE, URINE (UA) AUTO NEGATIVE (NEGATIVE); KETONE, URINE AUTO NEGATIVE (NEGATIVE); LEUKOCYTE ESTERASE, URINE AUTO NEGATIVE (NEGATIVE); NITRITE, URINE AUTO NEGATIVE (NEGATIVE); PROTEIN, URINE AUTO NEGATIVE (NEGATIVE); RBC, URINE AUTO 0 /HPF (0-3); SPECIFIC GRAVITY URINE AUTO 1.014 (1.002-1.035); SQUAMOUS EPITHELIAL CELL UR AU 1 /HPF (0-6); UROBILINOGEN, URINE AUTO 0.2 mg/dL (0.0-2.0); WBC, URINE AUTO 0 /HPF (0-3)
== END ==
LOC: M SFHCCLAY 08:41
PROVIDERS: ATTEND Nurse Practitioner Women's Health
DX: Z85.528 Personal history of other malignant neoplasm of kidney (principal); Z79.899 Other long term (current) drug therapy

== ENCOUNTER → 2020-08-20 | Outpatient (CLI) | payer MEDICARE, OTHER ==
--- NOTE | 2020-08-20 13:34 | REP ---
INDICATION: S99.912A INJURY OF LEFT ANKLE, INITIAL ENCOUNTER COMPARISON: None. TECHNIQUE: Four views left ankle. FINDINGS: There is no evidence of acute fracture, dislocation, or intrinsic bone disease.There is moderate calcification of the distal Achilles tendon at its insertion onto the posterior calcaneus. The ankle mortise is anatomic. IMPRESSION: No fracture or dislocation. <Electronically signed by Don Lopez > 08/20/20 [id number]
== END ==
LOC: M CLY 13:02
PROVIDERS: ATTEND Physician Assistant
DX: S99.912A Unspecified injury of left ankle, initial encounter (principal); X58.XXXA Exposure to other specified factors, initial encounter; Y92.9 Unspecified place or not applicable; M85.862 Other specified disorders of bone density and structure, left lower leg

== ENCOUNTER → 2020-12-03 | Outpatient (REF) | payer MEDICARE, OTHER | LOC: M SFHCCLAY 15:58 | PROVIDERS: ATTEND Family Medicine | DX: R30.0 Dysuria (principal) | CPT/HCPCS: 81002; 87088; 87186; G0463 ==

== ENCOUNTER → 2021-03-18 | Outpatient (REF) | payer MEDICARE, OTHER ==
[2021-03-19 12:13] LABS: BASO # 0.1 10^3/uL (0.0-0.2); BASO % 0.9 % (0.0-1.0); EOS # 0.3 10^3/uL (0.0-0.5); EOS % 2.8 % (0.0-3.0); HEMATOCRIT 45.4 % (36.0-47.0); HEMOGLOBIN 14.1 g/dl (12.0-15.5); LYMPH # 3.3 10^3/uL (1.5-5.0); LYMPH % 33.5 % (24.0-44.0); MEAN CORPUSCULAR HEMOGLOBIN 28.6 pg (27.0-33.0); MEAN CORPUSCULAR HGB CONC 31.1 g/dl (32.0-36.5); MEAN CORPUSCULAR VOLUME 92.1 fl (80.0-96.0); MONO # 0.8 10^3/uL (0.0-0.8); MONO % 7.6 % (2.0-8.0); NEUTROPHILS # 5.4 10^3/uL (1.5-8.5); NEUTROPHILS % 54.8 % (36.0-66.0); PLATELET COUNT, AUTOMATED 306 10^3/uL (150-450); RED BLOOD COUNT 4.93 10^6/uL (4.00-5.40); WHITE BLOOD COUNT 9.8 10^3/uL (4.0-10.0)
[2021-03-19 12:57] LABS: BLOOD UREA NITROGEN 15 MG/DL (7-18); CREATININE FOR GFR 0.94 MG/DL (0.55-1.30); GLUCOSE, FASTING 86 MG/DL (70-100)
[2021-03-19 12:58] LABS: ALBUMIN 3.8 GM/DL (3.2-5.2); ALT/SGPT 21 U/L (12-78); BILIRUBIN,TOTAL 0.4 MG/DL (0.2-1.0); CALCIUM LEVEL 9.4 MG/DL (8.8-10.2); CARBON DIOXIDE LEVEL 29 MEQ/L (21-32); CHLORIDE LEVEL 104 MEQ/L (98-107); GLOMERULAR FILTRATION RATE > 60.0 (>45); POTASSIUM SERUM 5.9 MEQ/L (3.5-5.1); SODIUM LEVEL 137 MEQ/L (136-145); TOTAL PROTEIN 7.4 GM/DL (6.4-8.2)
== END ==
LOC: M SFHCCLAY 15:34
PROVIDERS: ATTEND Physician Assistant
DX: R05 Cough (principal); R93.89 Abnormal findings on diagnostic imaging of other specified body structures

== ENCOUNTER → 2021-03-18 | Outpatient (CLI) | payer MEDICARE, OTHER ==
[~2021-03-18] MED LIST changes: +ASPI1CHW3 PO; +CYMB1CAP5 PO
--- NOTE | 2021-03-18 15:16 | REP ---
INDICATION: R05, COUGH. COMPARISON: 06/22/2017 the latest prior TECHNIQUE: PA and lateral FINDINGS: In the right lung perihilar region there is a new 5.3 cm sized cavitary lesion. The lung lund are otherwise unchanged and clear. The pleural angles are sharp. The heart is not enlarged. There is no change in the osseous structures. IMPRESSION: Large right lung cavitary lesion as described above. CT examination of the chest is recommended <Electronically signed by Eliud Grissom > 03/18/21 [id number]
== END ==
LOC: M CLY 14:51
PROVIDERS: ATTEND Physician Assistant
DX: R91.1 Solitary pulmonary nodule (principal); R05 Cough
CPT/HCPCS: 71046; 80053; 85025; G0463

== ENCOUNTER → 2021-03-23 | Outpatient (CLI) | payer MEDICARE, OTHER ==
[~2021-03-23] MED LIST changes: -ASPI1CHW3 PO; -CYMB1CAP5 PO; +ISOVUE-370 76% 100ML VIAL As Ordered ONE
--- NOTE | 2021-03-23 15:27 | REP ---
INDICATION: COUGH COMPARISON: 06/23/2017 TECHNIQUE: Standard helical technique after the intravenous administration of 100 cc Isovue 370. FINDINGS: There is no mediastinal or hilar adenopathy. Calcified mediastinal and hilar lymph nodes are again noted status quo. There are no pleural or pericardial effusions. There is no change in the imaged upper abdomen or imaged osseous structures. Evaluation of the lung lund shows a new large thick-walled cavitary lesion in the superior segment of the right lower lobe which measures approximately 4.3 x 4.5 by 4.3 cm. Nodular content is seen within this cavitary lesion. There are advanced chronic lung field changes also noted seen with multiple calcified and noncalcified pulmonary nodules all of which appear stable. Parenchymal bulla and pleural blebs are also noted in the mid and upper lung zones possibly increased slightly from the prior exam. IMPRESSION: New thick-walled cavitary lesion in the right lower lobe as described above. Exact etiology uncertain. As per April more versus tuberculosis versus other form of infectious or malignant cavitating mass. Other findings as described above. <Electronically signed by Eliud Grissom > 03/23/21 [id number]
== END ==
LOC: M RAD 14:55
PROVIDERS: ATTEND Physician Assistant
DX: R91.8 Other nonspecific abnormal finding of lung field (principal); R05 Cough
CPT/HCPCS: 71260; Q9967

== ENCOUNTER → 2021-03-25 | Outpatient (REF) | payer MEDICARE, OTHER ==
[~2021-03-25] MED LIST changes: -ISOVUE-370 76% 100ML VIAL As Ordered ONE
== END ==
LOC: M SFHCCLAY 15:08
PROVIDERS: ATTEND Physician Assistant
DX: Z85.528 Personal history of other malignant neoplasm of kidney (principal); R06.02 Shortness of breath; E78.5 Hyperlipidemia, unspecified; J98.4 Other disorders of lung; E55.9 Vitamin D deficiency, unspecified

== ENCOUNTER → 2021-03-26 | Outpatient (REF) | payer MEDICARE, OTHER ==
[2021-03-26 11:57] LABS: BASO # 0.1 10^3/uL (0.0-0.2); BASO % 0.7 % (0.0-1.0); EOS # 0.3 10^3/uL (0.0-0.5); EOS % 2.8 % (0.0-3.0); HEMATOCRIT 43.2 % (36.0-47.0); HEMOGLOBIN 13.4 g/dl (12.0-15.5); LYMPH # 2.7 10^3/uL (1.5-5.0); LYMPH % 28.3 % (24.0-44.0); MEAN CORPUSCULAR HEMOGLOBIN 28.3 pg (27.0-33.0); MEAN CORPUSCULAR VOLUME 91.1 fl (80.0-96.0); MONO # 0.7 10^3/uL (0.0-0.8); MONO % 6.8 % (2.0-8.0); NEUTROPHILS # 5.9 10^3/uL (1.5-8.5); NEUTROPHILS % 61.1 % (36.0-66.0); PLATELET COUNT, AUTOMATED 342 10^3/uL (150-450); RED BLOOD COUNT 4.74 10^6/uL (4.00-5.40); WHITE BLOOD COUNT 9.7 10^3/uL (4.0-10.0)
[2021-03-26 12:30] LABS: CHOLESTEROL RISK RATIO 3.591 (<5); POTASSIUM SERUM 4.2 MEQ/L (3.5-5.1)
== END ==
LOC: M SFHCCLAY 08:02
PROVIDERS: ATTEND Physician Assistant
DX: J98.4 Other disorders of lung (principal); E78.5 Hyperlipidemia, unspecified; E55.9 Vitamin D deficiency, unspecified; Z79.899 Other long term (current) drug therapy

== ENCOUNTER → 2021-03-29 | Outpatient (REF) | payer MEDICARE, OTHER ==
[2021-03-29 17:14] LABS: BASO # 0.1 10^3/uL (0.0-0.2); BASO % 0.7 % (0.0-1.0); EOS # 0.2 10^3/uL (0.0-0.5); EOS % 2.4 % (0.0-3.0); HEMATOCRIT 42.9 % (36.0-47.0); HEMOGLOBIN 13.4 g/dl (12.0-15.5); LYMPH # 2.8 10^3/uL (1.5-5.0); LYMPH % 29.4 % (24.0-44.0); MEAN CORPUSCULAR HEMOGLOBIN 28.4 pg (27.0-33.0); MEAN CORPUSCULAR HGB CONC 31.2 g/dl (32.0-36.5); MEAN CORPUSCULAR VOLUME 90.9 fl (80.0-96.0); MONO # 0.6 10^3/uL (0.0-0.8); MONO % 6.1 % (2.0-8.0); NEUTROPHILS # 5.8 10^3/uL (1.5-8.5); NEUTROPHILS % 61.1 % (36.0-66.0); PLATELET COUNT, AUTOMATED 337 10^3/uL (150-450); RED BLOOD COUNT 4.72 10^6/uL (4.00-5.40); WHITE BLOOD COUNT 9.6 10^3/uL (4.0-10.0)
[2021-03-29 17:31] LABS: INR 0.94; PROTHROMBIN TIME 12.8 SECONDS (12.5-14.3)
[2021-03-29 17:32] LABS: PARTIAL THROMBOPLASTIN TIME 45.7 SECONDS (24.2-38.5)
[2021-03-29 17:41] LABS: BLOOD UREA NITROGEN 19 MG/DL (7-18); CALCIUM LEVEL 9.1 MG/DL (8.8-10.2); CARBON DIOXIDE LEVEL 30 MEQ/L (21-32); CHLORIDE LEVEL 103 MEQ/L (98-107); CREATININE FOR GFR 0.91 MG/DL (0.55-1.30); GLOMERULAR FILTRATION RATE > 60.0 (>45); GLUCOSE, FASTING 70 MG/DL (70-100); POTASSIUM SERUM 4.7 MEQ/L (3.5-5.1); SODIUM LEVEL 137 MEQ/L (136-145)
== END ==
LOC: M LAB REF 16:49
PROVIDERS: ATTEND Internal Medicine Pulmonary Disease
DX: R91.8 Other nonspecific abnormal finding of lung field (principal)

== ENCOUNTER → 2021-04-05 | Outpatient (CLI) | payer MEDICARE, OTHER ==
[~2021-04-05] MED LIST changes: +ASPI1CHW3 PO; +CYMB1CAP5 PO
== END ==
LOC: M LABSMTC 12:51
PROVIDERS: ATTEND Anesthesiology
DX: Z01.818 Encounter for other preprocedural examination (principal); Z20.822 Contact with and (suspected) exposure to COVID-19

== ENCOUNTER 2021-04-10 06:20 | Day surgery (SDC) | payer MEDICARE, OTHER ==
[~2021-04-10] VITALS: Ht 170.2 cm; Wt 87.9 kg
[~2021-04-10 06:20] MED LIST changes: +ALBUTEROL SULFATE 2.5 MG/0.5 ML INH NEB SOLN INH ONE; -ASPI1CHW3 PO; -CYMB1CAP5 PO; +LIDOCAINE 4% INJ 5ML AMP INH ONE; +LR 1,000 ML IV ONE
[2021-04-10] MEDS ORDERED: ASPI1CHW3 PO (07:05)
[2021-04-10] MEDS ORDERED: CYMB1CAP5 PO (07:05)
[2021-04-10] MEDS ORDERED: THROMBIN SOLN 5,000 UNITS VIAL As Ordered ONE (07:08)
[2021-04-10] MEDS ORDERED: CETACAINE SPRAY 5GM As Ordered ONE (07:09)
[2021-04-10] MEDS ORDERED: EPINEPHrine 1MG/10ML SYRINGE 1.5IN As Ordered ONE (07:09)
[2021-04-10] MEDS ORDERED: LIDOCAINE 1% SDV 30ML VIAL As Ordered ONE (07:09)
[2021-04-10] MEDS ORDERED: MIDAZOLAM INJ 2MG/2ML VIAL (J2250 PER 1MG) As Ordered ONE (07:15)
[2021-04-10] MEDS ORDERED: propofoL 200 MG/20 ML VIAL As Ordered ONE (07:15)
[2021-04-10] MEDS ORDERED: fentaNYL 100 MCG/2 ML INJECTION (J3010) As Ordered ONE (07:15)
[2021-04-10] MEDS ORDERED: LIDOCAINE 2% 100MG/5ML SDV (FOR ANES.) As Ordered ONE (07:15)
[2021-04-10] MEDS ORDERED: ONDANSETRON 4MG/2ML VIAL As Ordered ONE (07:16)
[2021-04-10] MEDS ORDERED: ROCURONIUM BROMIDE 50 MG/5 ML VIAL As Ordered ONE (07:16)
[2021-04-10] MEDS ORDERED: dexameTHASONE 4 MG/ML 1ML VIAL (J1100 PER 1MG) As Ordered ONE (07:16)
[2021-04-10] MEDS ORDERED: SUGAMMADEX SODIUM 500 MG/5 ML VIAL (BRIDION) As Ordered ONE (07:54)
[2021-04-10] MEDS ORDERED: ACETAMINOPHEN 1000MG 100ML IV BTL (OFIRMEV) (J0131 PER 10MG) As Ordered ONE (08:16)
--- NOTE | 2021-04-10 08:36 | ECGEPIP ---
[facility] Test Date: 2021-04-10 Pat Name: ELVA LOZANO Department: Room: - Gender: Female Prefitter Doors: SAMUEL : 1950 Requested By: Zac Gould Order Number: [id number] Reading MD: Abdulaziz Suárez Measurements Intervals [place] Rate: 63 P: 23 WA: 206 QRS: -35 QRSD: 96 T: 11 QT: 394 QTc: 403 Interpretive Statements Normal sinus rhythm Left axis deviation Nonspecific T wave abnormality Comparison tracing not on file Electronically Signed on 04-10-2021 8:35:58 EDT by Abdulaziz Suárez
--- NOTE | 2021-04-10 08:39 | ROOR ---
Patient Name: Jo-Ann Bashir Procedure Date: 04/10/2021 7:10 AM Date of : 1950 Admit Type: Outpatient Age: 70 Note Status: Finalized Attending MD: Nubia Patel MD Procedure: Bronchoscopy Indications: Right lower lobe mass Providers: Nubia Patel MD (Doctor) Referring MD: 1. NO/Unknown PCP 1. NO/Unknown PCP, Admin. (Referring MD) Requesting Physician: Medicines: Lidocaine 4% via nebulizer with Albuterol 2.5 mg, Cetacaine topical, Epinephrine 1 mg/10 mL topical 1 mL, General Anesthesia Complications: No immediate complications. Estimated blood loss: Minimal Procedure: Pre-Anesthesia Assessment: - Prior to the procedure, a History and Physical was performed, and patient medications and allergies were reviewed. The patient's tolerance of previous anesthesia was also reviewed. The risks and benefits of the procedure and the sedation options and risks were discussed with the patient. All questions were answered, and informed consent was obtained. Prior Anticoagulants: The patient has taken aspirin, last dose was day of procedure. ASA Grade Assessment: II - A patient with mild systemic disease. After reviewing the risks and benefits, the patient was deemed in satisfactory condition to undergo the procedure. - Patient identification and proposed procedure were verified prior to the procedure by the physician, the nurse, the anesthesiologist, the non destructive evaluation technician and the weight reducing technician. The procedure was verified in the procedure room. The Bronchoscope was introduced through the mouth, via the endotracheal tube (the patient was intubated for the procedure) and advanced to the tracheobronchial tree of both lungs. The procedure was accomplished without difficulty. The patient tolerated the procedure well. Findings: Respiratory tract: The larynx is normal. The vocal cords appear normal. The subglottic space is normal. The trachea is of normal caliber. The rocael is sharp. The entire tracheobronchial tree was examined to at least the first subsegmental level. Bronchial mucosa and anatomy are normal; there are no endobronchial lesions and no secretions, except in the superior segment of the right lower lobe. Electromagnetic navigation bronchoscopy was performed. The CT scan was used for planning purposes. A virtual bronchoscopic image was generated using the planning software. The target in the superior segment of the right lower lobe was marked. A mass 4.5 cm in size was found and a pathway was created. After a complete airway exam, the locatable guide/extended working channel was inserted and an automatic registration was performed. The navigation phase was then begun to locate the target lesion(s). Positioning centrally (in relation to the lesion) was confirmed using the Olympus radial probe US catheter. The locatable guide was removed from the extended working channel. Transbronchial biopsies of a mass were performed in the superior segment of the right lower lobe using forceps and sent for histopathology examination. The procedure was guided by fluoroscopy. Transbronchial biopsy technique was selected because the sampling site was not visible endoscopically. Bronchoalveolar lavage was performed in the RLL superior segment (B6) of the lung and sent for routine cytology and bacterial, AFB and fungal analysis. The return was blood-tinged. Mucous plugs were present in the return fluid. Multiple specimens were obtained and pooled into one specimen, which was sent for analysis. Impression: - Right lower lobe mass - Electromagnetic navigation bronchoscopy was performed. - Transbronchial lung biopsies were performed. - Bronchoalveolar lavage was performed. Recommendation: - Await test results. Procedure Code(s): --- Professional --- 62792, Bronchoscopy, rigid or flexible, including fluoroscopic guidance, when performed; with transbronchial lung biopsy(s), single lobe 81281, Bronchoscopy, rigid or flexible, including fluoroscopic guidance, when performed; with bronchial alveolar lavage 77945, Bronchoscopy, rigid or flexible, including fluoroscopic guidance, when performed; with computer-assisted, image-guided navigation (List separately in addition to code for primary procedure[s]) 85732, Bronchoscopy, rigid or flexible, including fluoroscopic guidance, when performed; with transendoscopic endobronchial ultrasound (EBUS) during bronchoscopic diagnostic or therapeutic intervention(s) for peripheral lesion(s) (List separately in addition to code for primary procedure[s]) CPT copyright 2019 [employer]. All rights reserved. The codes documented in this report are preliminary and upon client operations manager review may be revised to meet current compliance requirements. Nubia Patel MD 04/10/2021 8:39:22 AM Number of Addenda: 0 Note Initiated On: 04/10/2021 7:10 AM
--- NOTE | 2021-04-10 08:55 | REP ---
INDICATION: POST OP IN PACU/ BRONCHOSCOPY COMPARISON: 03/18/2021 TECHNIQUE: Portable AP view of the chest FINDINGS: The mediastinum and cardiac silhouette are stable and within normal limits for portable technique. Lung lund without focal consolidation, effusion, or pneumothorax. Subtle right perihilar atelectasis cannot be excluded. IMPRESSION: No pneumothorax. <Electronically signed by Juan Bravo > 04/10/21 [id number]
[2021-04-10] MEDS ORDERED: LR 1,000 ML IV SCH (09:05)
[2021-04-10] MEDS ORDERED: ONDANSETRON 4MG/2ML VIAL IV PRN (09:05)
[2021-04-10] MEDS ORDERED: HYDROMORPHONE HCL 0.5 MG/ 0.5 ML SYRINGE (J1170 PER 1) IV PRN (09:05)
[2021-04-10] MEDS ORDERED: fentaNYL 100 MCG/2 ML INJECTION (J3010) IV PRN (09:05)
[2021-04-10] MEDS ORDERED: oxyCODONE 5MG TAB PO PRN (09:05)
[2021-04-10 09:45] VITALS: BP 155/69
--- NOTE | 2021-04-11 08:58 | REP ---
INDICATION: RIGHT LOWER LOBE ABNORMALITY. COMPARISON: None. TECHNIQUE: 3 minutes 28 seconds of fluoroscopy time is reported. No images. FINDINGS: None. IMPRESSION: Procedural imaging. <Electronically signed by Bean Niño > 04/11/21 [id number]
== END 2021-04-10 09:45 | disposition home or self-care (01) ==
LOC: M SDC 06:20
PROVIDERS: ATTEND Internal Medicine Pulmonary Disease
DX: J84.10 Pulmonary fibrosis, unspecified (principal); E78.00 Pure hypercholesterolemia, unspecified; Z86.19 Personal history of other infectious and parasitic diseases; F41.9 Anxiety disorder, unspecified; F32.9 Major depressive disorder, single episode, unspecified; J44.9 Chronic obstructive pulmonary disease, unspecified; Z90.5 Acquired absence of kidney; Z85.828 Personal history of other malignant neoplasm of skin; Z87.891 Personal history of nicotine dependence; Z91.040 Latex allergy status
CPT/HCPCS: 31624; 31627; 31628; 31654; 71045; 76000; 87070; 87102; 87116; 87205; 87206; 88108; 88305; 88313; 93005; J0131; J1100; J2250; J2405; J3010

== ENCOUNTER → 2021-04-24 | Outpatient (REF) | payer MEDICARE, OTHER ==
[~2021-04-24] MED LIST changes: -ALBUTEROL SULFATE 2.5 MG/0.5 ML INH NEB SOLN INH ONE; +ASPI1CHW3 PO; +CYMB1CAP5 PO; -LIDOCAINE 4% INJ 5ML AMP INH ONE; -LR 1,000 ML IV ONE
== END ==
LOC: M SFHCCLAY 16:00
PROVIDERS: ATTEND Physician Assistant
DX: N39.0 Urinary tract infection, site not specified (principal)

== ENCOUNTER → 2021-05-06 | Outpatient (CLI) | payer MEDICARE, OTHER ==
[~2021-05-06] MED LIST changes: +ISOVUE-370 76% 100ML VIAL As Ordered ONE
--- NOTE | 2021-05-06 09:36 | REP ---
INDICATION: ABN FINDING OF LUNG. COMPARISON: CT chest with contrast, 03/23/2021 TECHNIQUE: Imaging protocol: Computed tomography of the chest with contrast. Contiguous axial projection images were obtained through the chest. 2D sagittal and coronal reconstructions were performed. Radiation optimization: All CT scans at this facility use at least one of these dose optimization techniques: automated exposure control; mA and/or kV adjustment per patient size (includes targeted exams where dose is matched to clinical indication); or iterative reconstruction. Contrast material: ISOVUE 370; Contrast volume: 100 ml; Contrast route: INTRAVENOUS (IV). FINDINGS: Lower neck: Thyroid gland is normal. There is no supraclavicular lymphadenopathy. Mediastinum: There are benign calcified right paratracheal, right hilar and right interlobar lymph nodes. Heart/thoracic aorta: The heart size is normal. There is no pericardial effusion. There is calcific vascular disease of the thoracic aorta and coronary arteries. Upper abdomen: There is calcific vascular disease of the abdominal aorta. Status post right nephrectomy. There are benign calcified splenic granulomas. Thoracic esophagus: Normal. Chest wall and axilla: The soft tissues of the chest wall appear normal. There is no axillary lymphadenopathy. There is moderate multilevel degenerative disc disease of the thoracic and upper lumbar spine with associated dextroscoliosis. Lung parenchyma: There is moderate upper lobe predominant emphysema with both centrilobular and paraseptal components. In the superior segment of the lower lobe of the right lung there is a thick walled cavitary mass with an air-fluid level measuring 4.5 x 4.2 x 4.1 cm. There are benign calcified granulomas in the middle lobe of the right lung and lower lobe of the right lung. There are no pleural effusions. No evidence of pneumothorax. IMPRESSION: 1. Thick-walled cavitary mass in the superior segment of the lower lobe of the right lung has developed an air-fluid level since the prior CT exam. There has been a transbronchial biopsy since the prior exam, and fluid within the cavity likely is hemorrhagic. 2. Emphysema. 3. Calcific vascular disease of the thoracoabdominal aorta and coronary arteries. 4. Other findings as noted. <Electronically signed by Bartolome Gonzalez > 05/06/21 0998
== END ==
LOC: M RAD 08:33
PROVIDERS: ATTEND Internal Medicine Pulmonary Disease
DX: R91.8 Other nonspecific abnormal finding of lung field (principal)
CPT/HCPCS: 71260; Q9967

== ENCOUNTER → 2021-05-27 | Outpatient (CLI) | payer MEDICARE, OTHER ==
[~2021-05-27] MED LIST changes: -ISOVUE-370 76% 100ML VIAL As Ordered ONE
--- NOTE | 2021-05-28 09:05 | REP ---
INDICATION: DIAGNOSING ABNORMAL FINDINGS OF THE LUNG FIELD. COMPARISON: No prior PET CTs for comparison. Previous CT examination of the chest 05/06/2021 was reviewed. TECHNIQUE: After the intravenous administration of 8.67 mCi of FDG 18 triplane whole-body PET-CT was performed from the skull base to the mid thigh. FINDINGS: There is intense hypermetabolic activity in the soft tissue component surrounding the large cavitary lesion which maintains an air-fluid level in the right lung lower lobe. The maximal SUV values of this abnormally hypermetabolic tissue is 12.05. There is no concomitant hypermetabolic activity in the right hilum. There are no other areas of abnormal hypermetabolic activity seen in the neck, chest, abdomen, or pelvis. IMPRESSION: Cavitary lesion seen in the right lung lower lobe with hypermetabolic activity, a persistent air-fluid level, and which has not changed in size when compared to the prior CT as described above. Due to the persistent air-fluid level the finding most likely represents infectious etiology, however, neoplastic etiology cannot be completely ruled out. <Electronically signed by Eliud Grissom > 05/28/21 0901
== END ==
LOC: M PLARAD 14:52
PROVIDERS: ATTEND Internal Medicine Pulmonary Disease
DX: R91.8 Other nonspecific abnormal finding of lung field (principal)
CPT/HCPCS: 78815; A9552

== ENCOUNTER → 2021-06-14 | Outpatient (CLI) | payer MEDICARE, OTHER ==
[~2021-06-14] MED LIST changes: +ALBU8.5H INH; +AMOX500T2 PO; +ASPI81CH33 PO; +DULO60CA35 PO; +HOME MED LIST COMPLETE! XX SCH; +LIDOCAINE 1% MDV 20ML VIAL As Ordered ONE; +PROV108A INH; +SIMV20TA22 PO; +SODIUM BICARBONATE 8.4% INJ 50MEQ 50 ML VIAL As Ordered ONE; +TIOT18INH INH; +VITMTA PO
[2021-06-14 08:57] LABS: HEMATOCRIT 41.6 % (36.0-47.0); HEMOGLOBIN 12.8 g/dl (12.0-15.5); MEAN CORPUSCULAR HEMOGLOBIN 27.4 pg (27.0-33.0); MEAN CORPUSCULAR HGB CONC 30.8 g/dl (32.0-36.5); MEAN CORPUSCULAR VOLUME 88.9 fl (80.0-96.0); PLATELET COUNT, AUTOMATED 413 10^3/uL (150-450); RED BLOOD COUNT 4.68 10^6/uL (4.00-5.40); WHITE BLOOD COUNT 10.6 10^3/uL (4.0-10.0)
[2021-06-14 09:25] LABS: INR 0.97; PROTHROMBIN TIME 13.3 SECONDS (12.7-14.5)
[2021-06-14 12:30] VITALS: BP 128/62
--- NOTE | 2021-06-14 13:01 | REP ---
INDICATION: S/P RLL COMPARISON: 04/10/2021 as well as other prior exams. TECHNIQUE: Two views. FINDINGS: There is no pneumothorax status post right lung biopsy. Cavitating mass is again noted at the level of the right hilum. No acute infiltrate is seen. The heart and mediastinum are unchanged. There are degenerative changes of the spine. IMPRESSION: No pneumothorax status post right lung biopsy. <Electronically signed by Don Lopez > 06/14/21 1257
--- NOTE | 2021-06-14 15:16 | REP ---
INDICATION: RLL LUNG NODULE. COMPARISON: None. TECHNIQUE: The procedure is performed by Adeola Cooper [facility], under the direct supervision of Dr. Lopez. The risks and benefits of the procedure were explained to the patient and informed consent was obtained both orally and written. Directly prior to the start of the procedure, a formal timeout was done in the exam room. The right lower lobe lung mass was localized using CT guidance. Skin was prepped and draped in the usual sterile fashion. Eight ml of 5 for lidocaine was used as a local anesthetic. FINDINGS: Using CT guidance a 19/20 gauge coaxial needle biopsy system was inserted and advanced into the nodule. Nine core biopsy samples were obtained and sent to the lab. Six biopsies were placed in formalin and sent to the laboratory for pathology, the remaining 3 biopsies were set up in a sterile cup to evaluate for any infection. CT images obtained directly after the biopsy show no evidence of pneumothorax. After the appropriate amount of monitored convalescence the patient was discharged from the department. IMPRESSION: CT-guided right lower lobe lung mass biopsy. <Electronically signed by Adeola Cooper > 06/14/21 1414 <Electronically signed by Don Lopez > 06/14/21 1512
== END ==
LOC: M IRPRO 07:58
PROVIDERS: ATTEND Internal Medicine Pulmonary Disease
DX: C34.31 Malignant neoplasm of lower lobe, right bronchus or lung (principal)

== ENCOUNTER → 2021-07-03 | Outpatient (REF) | payer MEDICARE, OTHER ==
[~2021-07-03] MED LIST changes: -HOME MED LIST COMPLETE! XX SCH; -LIDOCAINE 1% MDV 20ML VIAL As Ordered ONE; -SODIUM BICARBONATE 8.4% INJ 50MEQ 50 ML VIAL As Ordered ONE
== END ==
LOC: M SFHCCLAY 08:31
PROVIDERS: ATTEND Family Medicine
DX: R30.0 Dysuria (principal)

== ENCOUNTER → 2021-07-05 | Outpatient (CLI) | payer MEDICARE, OTHER | LOC: M ONCR 12:52 | PROVIDERS: ATTEND Radiology Radiation Oncology | DX: C34.31 Malignant neoplasm of lower lobe, right bronchus or lung (principal); E78.5 Hyperlipidemia, unspecified; G47.00 Insomnia, unspecified; J45.909 Unspecified asthma, uncomplicated; Z72.0 Tobacco use; Z85.528 Personal history of other malignant neoplasm of kidney; Z90.5 Acquired absence of kidney; Z91.040 Latex allergy status; Z91.048 Other nonmedicinal substance allergy status ==

== ENCOUNTER → 2021-07-12 | Outpatient (CLI) | payer MEDICARE, OTHER ==
[~2021-07-12] MED LIST changes: +ISOVUE-370 76% 100ML VIAL As Ordered ONE
--- NOTE | 2021-07-12 16:59 | REP ---
INDICATION: NON SM CELL LUNG CA. COMPARISON: Comparison chest CT study May 06, 2021 and March 23, 2021. TECHNIQUE: Helical scanning is acquired following the intravenous injection of 100 mL of Isovue 370. 3 mm axial images re-formatted. Coronal and sagittal MPR images are generated and reviewed. FINDINGS: Preliminary digital park ranger radiograph demonstrates a large mass in the right perihilar region. Axial CT images demonstrate this in the right lower lobe. This is a cavitary mass. It is increased in size. On today's CT, its axial dimensions are 6.0 x 5.3 cm, increased from 4.6 x 4.2 cm by my measurement on May 06, 2021. No other lung mass lesion is seen. There is a small stable subcentimeter pleural based nodule in the left lower lobe, page 32 of 106 series 204. There is a granulomatous calcification in the left lower lobe. There is another in the right middle lobe. No other significant pulmonary nodule is seen. Mild emphysematous changes are noted in the upper lobes bilaterally. There is no evidence of pleural or pericardial effusion. Granulomatous lymph node calcifications are seen in both hilar regions and in the pretracheal region of the mediastinum. No other evidence of mediastinal adenopathy is seen. Vascular calcification is observed and there is some plaquing in the descending thoracic aorta. No adrenal lesion is seen. The right kidney appears to be surgically absent. The visualized upper abdominal structures are otherwise unremarkable. No bony destructive lesion is appreciated. IMPRESSION: Interval enlargement of a cavitary mass in the right lower lobe. Old granulomatous changes. Otherwise no acute disease. <Electronically signed by Bean Niño > 07/12/21 [id number]
--- NOTE | 2021-07-14 09:01 | REP ---
INDICATION: NON SM CELL LUNG CA. COMPARISON: 10/18/2019 TECHNIQUE: Axial contrast-enhanced images from the lung bases to the pubic symphysis using 100 cc Isovue 370 intravenous contrast material. Delayed images of the abdomen along with coronal and sagittal reformations obtained. This CT examination was performed using the following dose reduction techniques: Automated exposure control, adjustment of mA and/or kv according to the patient's size, and the use of iterative reconstruction technique. FINDINGS: Liver, spleen, pancreas, gallbladder, bilateral adrenal glands and left kidney are normal. Patient is again noted to be status post right nephrectomy. Incidental splenic calcifications suggest prior granulomatous disease. The enteric system is without obstruction or acute inflammatory process. Normal terminal ileum and appendix are identified in the right lower quadrant. Moderate fecal stasis throughout the colon noted. Sigmoid diverticulosis without acute diverticulitis identified. Pelvis demonstrates normal bladder and calcified degenerating fibroid in the uterus. No ascites. No free air. No intraperitoneal or retroperitoneal adenopathy. Abdominal aorta and vasculature appear normal. Musculoskeletal structures demonstrate degenerative changes without acute focal osseous abnormality. IMPRESSION: 1. No evidence for metastatic disease or acute abdominopelvic process. 2. Stable chronic findings as described above including prior right nephrectomy, diverticulosis, and calcified uterine fibroid. 3. No ascites, focal inflammatory stranding, adenopathy. <Electronically signed by Juan Bravo > 07/14/21 1148
== END ==
LOC: M RAD 15:28
PROVIDERS: ATTEND Internal Medicine Hematology & Oncology
DX: C34.31 Malignant neoplasm of lower lobe, right bronchus or lung (principal); Z90.5 Acquired absence of kidney
CPT/HCPCS: 71260; 74177; Q9967

== ENCOUNTER → 2021-07-15 | Outpatient (CLI) | payer MEDICARE, OTHER ==
[~2021-07-15] MED LIST changes: -ISOVUE-370 76% 100ML VIAL As Ordered ONE; +PROHANCE 279.3MG/ML 15ML VIAL As Ordered ONE; +PROHANCE 279.3MG/ML 5ML VIAL As Ordered ONE
--- NOTE | 2021-07-16 17:13 | REPVR ---
PROCEDURE INFORMATION: Exam: MR Head Without and With Contrast Exam date and time: 07/15/2021 11:25 AM Age: 71 years old Clinical indication: Staging for non-small cell lung cancer. TECHNIQUE: Imaging protocol: MR of the head without and with intravenous contrast. Contrast material: PROHANCE; Contrast volume: 8 ml; Contrast route: INTRAVENOUS (IV); COMPARISON: PET/CT Skull/mid thigh 05/27/2021 4:01 PM FINDINGS: Brain: Nonspecific T2/FLAIR hyperintensities of the periventricular and deep subcortical white matter, most likely secondary to chronic small vessel ischemic change. No intracranial hemorrhage or extra-axial fluid collection. No evidence of mass effect or midline shift. No restricted diffusion to suggest acute infarct. No abnormal intracranial enhancement. Cerebral ventricles: No ventriculomegaly. Bones/joints: Unremarkable. Paranasal sinuses: Normal as visualized. No acute sinusitis. Mastoid air cells: No mastoid effusion. Orbital cavity: Unremarkable. Soft tissues: Unremarkable. IMPRESSION: 1. No acute intracranial pathology. No evidence of metastatic disease to the brain. 2. Chronic findings, as above. Electronically signed by: Kit Fuentes On 07/16/2021 17:12:46 PM
== END ==
LOC: M RAD 09:35
PROVIDERS: ATTEND Internal Medicine Hematology & Oncology
DX: C34.31 Malignant neoplasm of lower lobe, right bronchus or lung (principal)
CPT/HCPCS: 70553; A9576

== ENCOUNTER → 2021-08-20 | Outpatient (CLI) | payer MEDICARE, OTHER ==
[~2021-08-20] MED LIST changes: +GASTROGRAFIN SOLUTION 30ML (Q9963) As Ordered ONE; +ISOVUE-370 76% 100ML VIAL As Ordered ONE; -PROHANCE 279.3MG/ML 15ML VIAL As Ordered ONE; -PROHANCE 279.3MG/ML 5ML VIAL As Ordered ONE
--- NOTE | 2021-08-20 10:08 | REP ---
INDICATION: MALIGNANT NEOPLASM OF LOWER LOBE RT LUNG. COMPARISON: 07/12/2021 TECHNIQUE: Axial contrast-enhanced images from the lung bases to the pubic symphysis using 100 cc Isovue 370 intravenous contrast material. Coronal and sagittal reformations obtained along with delayed images of the abdomen. This CT examination was performed using the following dose reduction techniques: Automated exposure control, adjustment of mA and/or kv according to the patient's size, and the use of iterative reconstruction technique. FINDINGS: Liver, spleen, pancreas, gallbladder, bilateral adrenal glands and left kidney are normal/stable. Evidence for prior right nephrectomy noted. The enteric system including stomach, small, and large bowel appears normal. No evidence for obstruction or acute inflammatory process. Normal terminal ileum and appendix are identified in the right lower quadrant. Few scattered colonic diverticula noted without acute diverticulitis. Pelvis demonstrates normal bladder and stable 2.5 cm calcified uterine fibroid. No ascites. No free air. No intraperitoneal or retroperitoneal adenopathy. Abdominal aorta and vasculature appear normal. Musculoskeletal structures are intact and without acute osseous abnormality. Lung bases demonstrate 5.1 cm incompletely evaluated cystic lesion in the posterior right lower lobe with small amounts of adjacent atelectasis. IMPRESSION: 1. No acute abdominopelvic pathology appreciated. 2. 5.1 cm cystic lesion in the right lung base incompletely evaluated. <Electronically signed by Juna Bravo > 08/20/21 1007
--- NOTE | 2021-08-20 10:12 | REP ---
INDICATION: MALIGNANT NEOPLASM OF LOWER RT LUNG COMPARISON: 07/12/2021 TECHNIQUE: Axial contrast enhanced images from the thoracic inlet to the upper abdomen with coronal and sagittal reformations using 100 ml Isovue 370 intravenous contrast material. This CT examination was performed using the following dose reduction techniques: Automated exposure control, adjustment of mA and/or kv according to the patient's size, and use of iterative reconstruction technique. FINDINGS: 5.6 cm cystic lesion in the posterior right lower lobe with subtle internal septations and minimal mural irregularities is appreciated and appears slightly decreased in size from prior examination and essentially void of internal gas. Minimal amount of adjacent atelectasis is again identified. No new suspicious area of consolidation, new nodule or mass lesion is otherwise identified. Remainder of lung lund demonstrate chronic interstitial and emphysematous changes with few scattered small primarily subpleural calcified and noncalcified nodules as well as calcified and noncalcified mediastinal and hilar (right greater than left) lymph nodes suggesting sequelae of prior granulomatous disease. No effusion. No pneumothorax. Tracheobronchial tree is patent. Further evaluation of the mediastinum demonstrates stable atherosclerotic changes to the thoracic aorta and coronary arteries without aortic aneurysm or dissection. No cardiomegaly or pericardial effusion. IMPRESSION: 1. Known cystic lesion in the right lower lobe slightly decreased in size and currently essentially void of internal gas as identified on prior examination. No new similar suspicious pulmonary lesions are identified. 2. Stable chronic scattered calcified and noncalcified nodules as well as calcified and noncalcified mediastinal/hilar lymph nodes which may represent sequelae of prior granulomatous disease. <Electronically signed by Juan Bravo > 08/20/21 [id number]
== END ==
LOC: M RAD 07:15
PROVIDERS: ATTEND Internal Medicine Hematology & Oncology
DX: C34.31 Malignant neoplasm of lower lobe, right bronchus or lung (principal)
CPT/HCPCS: 71260; 74177; Q9963; Q9967

== ENCOUNTER → 2021-10-03 | Outpatient (REF) | payer MEDICARE, OTHER ==
[~2021-10-03] MED LIST changes: -GASTROGRAFIN SOLUTION 30ML (Q9963) As Ordered ONE; -ISOVUE-370 76% 100ML VIAL As Ordered ONE; +PROC10TA5 PO; +SIMV10TA21 PO; +TESS100C PO
== END ==
LOC: M SFHCCLAY 11:17
PROVIDERS: ATTEND Family Medicine
DX: R53.83 Other fatigue (principal); R05.9 Cough, unspecified; R11.0 Nausea; C34.91 Malignant neoplasm of unspecified part of right bronchus or lung

== ENCOUNTER → 2021-10-03 | Outpatient (CLI) | payer MEDICARE, OTHER | LOC: M CLY 11:29 | PROVIDERS: ATTEND Family Medicine | DX: J90 Pleural effusion, not elsewhere classified (principal); R05.9 Cough, unspecified; C34.91 Malignant neoplasm of unspecified part of right bronchus or lung; R53.83 Other fatigue; R11.0 Nausea | CPT/HCPCS: 71046; 80053; 82150; 83690; 83735; 85025; 87426; G0463 ==

== ENCOUNTER → 2021-10-14 | Outpatient (CLI) | payer MEDICARE, OTHER ==
[2021-10-14 11:45] VITALS: BP 135/65
== END ==
LOC: M IRPRO 11:31
PROVIDERS: ATTEND Surgery
DX: J90 Pleural effusion, not elsewhere classified (principal); Z53.8 Procedure and treatment not carried out for other reasons

== ENCOUNTER 2021-12-16 15:50 | Emergency (ER) | payer MEDICARE, OTHER ==
[2021-12-16] MEDS ORDERED: NS 1,000 ML IV ONE (17:10)
[2021-12-16] MEDS ORDERED: ONDANSETRON 4MG/2ML VIAL As Ordered ONE (17:18)
[2021-12-16] MEDS ORDERED: ONDANSETRON 4MG/2ML VIAL IV ONE (17:30)
[2021-12-16 17:45] LABS: BASO # 0.1 10^3/uL (0.0-0.2); BASO % 0.6 % (0.0-1.0); EOS # 0.1 10^3/uL (0.0-0.5); EOS % 0.9 % (0.0-3.0); HEMATOCRIT 40.6 % (36.0-47.0); HEMOGLOBIN 12.6 g/dl (12.0-15.5); LYMPH # 1.3 10^3/uL (1.5-5.0); LYMPH % 16.8 % (24.0-44.0); MEAN CORPUSCULAR HEMOGLOBIN 25.8 pg (27.0-33.0); MEAN CORPUSCULAR VOLUME 83.2 fl (80.0-96.0); MONO # 0.4 10^3/uL (0.0-0.8); MONO % 5.3 % (2.0-8.0); NEUTROPHILS # 5.9 10^3/uL (1.5-8.5); NEUTROPHILS % 75.9 % (36.0-66.0); PLATELET COUNT, AUTOMATED 338 10^3/uL (150-450); RED BLOOD COUNT 4.88 10^6/uL (4.00-5.40); WHITE BLOOD COUNT 7.7 10^3/uL (4.0-10.0)
[2021-12-16 17:46] LABS: CK-MB VALUE MASS < 1.0 NG/ML (<3.6); CPK CREATINE PHOSPHOKINASE 38 U/L (26-192); MB/CK RELATIVE INDEX 2.63 (< OR =4)
[2021-12-16 17:52] LABS: ALBUMIN 3.6 GM/DL (3.2-5.2); BILIRUBIN,DIRECT 0.1 MG/DL (0.0-0.2); BILIRUBIN,TOTAL 0.5 MG/DL (0.2-1.0); CALCIUM LEVEL 9.2 MG/DL (8.8-10.2); CREATININE FOR GFR 1.25 MG/DL (0.55-1.30); GLOMERULAR FILTRATION RATE 45.2 (>45); POTASSIUM SERUM 4.5 MEQ/L (3.5-5.1); THYROID STIMULATING HORMONE 0.471 uIU/ML (0.358-3.740); TOTAL PROTEIN 7.2 GM/DL (6.4-8.2)
[2021-12-16] MEDS ORDERED: PROHANCE 279.3MG/ML 15ML VIAL As Ordered ONE (18:09)
[2021-12-16] MEDS ORDERED: dexameTHASONE 20MG/5ML VIAL (J1100 PER 1MG) IV ONE (18:15)
[2021-12-16 21:09] LABS: RSV AMPLIFICATION NEGATIVE (NEGATIVE)
[2021-12-16] MEDS ORDERED: PROMETHAZINE INJ 25 MG/ML VIAL (J2550) IV ONE (22:10)
[2021-12-16 23:00] VITALS: BP 160/74
== END 2021-12-16 23:30 | disposition short-term general hospital (02) ==
LOC: M ED 15:50
DX: G91.9 Hydrocephalus, unspecified (principal); D43.2 Neoplasm of uncertain behavior of brain, unspecified; Z85.118 Personal history of other malignant neoplasm of bronchus and lung; Z85.528 Personal history of other malignant neoplasm of kidney; Z88.8 Allergy status to other drugs, medicaments and biological substances; Z79.899 Other long term (current) drug therapy; Z79.82 Long term (current) use of aspirin; F17.210 Nicotine dependence, cigarettes, uncomplicated
CPT/HCPCS: 70450; 70553; 71045; 80047; 80048; 80076; 82140; 82550; 82553; 83605; 84443; 84484; 85025; 87040; 87631; 93005; 93041; 94760; 96361; 96374; 96375; 99285; A9576; J1100; J2405

== ENCOUNTER → 2022-02-18 | Outpatient (CLI) | payer MEDICARE, OTHER | LOC: M WHC 14:45 | PROVIDERS: ATTEND Radiology Radiation Oncology | DX: C34.31 Malignant neoplasm of lower lobe, right bronchus or lung (principal); Z12.31 Encounter for screening mammogram for malignant neoplasm of breast ==